=== PATIENT | male | born 1950 | race Caucasian/White ===

== ENCOUNTER 2025-02-07 19:07 | Emergency (ER) | payer OTHER, SELFPAY ==
--- NOTE | ~2025-02-07 | XR_ITS ---
CLINICAL HISTORY: injury pain Right wrist three views Comparison: None provided Findings: No acute fracture or dislocation identified. No acute focal bony abnormality. No radiopaque foreign body noted. Impression: No acute bony abnormality This document has been electronically signed by: Jeff Yoon MD on 02/07/2025 20:14:56
--- NOTE | ~2025-02-07 | XR_ITS ---
CLINICAL HISTORY: injury pain Right hand three views Comparison: None provided Findings: No acute fracture or dislocation identified. No acute focal bony abnormality. No radiopaque foreign body noted. Impression: No acute bony abnormality This document has been electronically signed by: Jeff Yoon MD on 02/07/2025 20:16:11
[2025-02-07 19:16] VITALS: BP 162/82; BP 186/79; PULSE 86; RESP 18; TEMP 36.4; O2SAT 95; O2SAT 97; BMI 26.5
[2025-02-07 21:44] VITALS: BP 158/76; PULSE 80; RESP 16; TEMP 36.8; O2SAT 96
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
--- NOTE | 2025-02-07 22:18 | PC.NURSE ---
multiple calls made to [place] without answer. able to reach other units who transfer to patients' unit and no answer. gave number to call [phone] with no answer. awaiting ems transfer.
[2025-02-07 22:47] VITALS: BP 158/76; PULSE 80; RESP 16; TEMP 36.8; O2SAT 96
== END 2025-02-07 22:47 | disposition home or self-care (01) ==
PROVIDERS: Emergency Provider Emergency Medicine; PCP Nurse Practitioner Psychiatric/Mental Health
DX: S63.502A Unspecified sprain of left wrist, initial encounter (principal); S63.501A Unspecified sprain of right wrist, initial encounter; S66.912A Strain of unspecified muscle, fascia and tendon at wrist and hand level, left hand, initial encounter; S66.911A Strain of unspecified muscle, fascia and tendon at wrist and hand level, right hand, initial encounter; W22.09XA Striking against other stationary object, initial encounter; M79.642 Pain in left hand; M79.641 Pain in right hand; Y93.89 Activity, other specified; Y92.218 Other school as the place of occurrence of the external cause; Y99.8 Other external cause status
CPT/HCPCS: 73110; 73130; 99283

== ENCOUNTER → 2025-02-07 19:40 | Outpatient (BNV) | payer OTHER, SELFPAY | PROVIDERS: Visit Provider Radiology Diagnostic Radiology | DX: M25.532 Pain in left wrist (principal); M25.531 Pain in right wrist; M79.642 Pain in left hand; M79.641 Pain in right hand | CPT/HCPCS: 73110; 73130 ==